=== PATIENT | male | born 1975 | race African-American/Black ===

== ENCOUNTER 2020-11-15 17:24 | Emergency (ER) | payer OTHER ==
[2020-11-15 17:32] VITALS: BP 136/67
--- NOTE | 2020-11-15 17:44 | ED Physician Documentation ---
PD HPI HEENT - Stated complaint Stated Complaint: ITCHY SMELLY EARS W/ PX - Chief complaint Chief Complaint: Heent - History obtained from History obtained from: Patient - Additional information Additional information: Because of PTSD he does not like loud noises. He wears earphones often, earplugs to. He changed his earplugs about a month ago and there was a lot of moisture in his ear. Since then both of his ears have been itchy and smelling foul. No change in hearing. Review of Systems Constitutional: reports: Reviewed and negative Ears: reports: Reviewed and negative Nose: reports: Reviewed and negative Throat: reports: Reviewed and negative PD PAST MEDICAL HISTORY - Past Medical History Past Medical History: Yes Cardiovascular: None Respiratory: None Neuro: Motion sickness Endocrine/Autoimmune: None GI: GERD : None HEENT: None Psych: None Musculoskeletal: None Derm: None - Past Surgical History Past Surgical History: No - Present Medications Home Medications: Ambulatory Orders Medication Instructions Recorded Confirmed Escitalopram Oxalate [Lexapro] 7.5 mg PO DAILY 11/15/20 11/15/20 Famciclovir 125 mg PO DAILY 11/15/20 11/15/20 Neomycin/Polymyx/Hc Otic Drops 4 drops OT TID #1 bottle 11/15/20 [Cortisporin Ear Susp] - Allergies Allergies/Adverse Reactions: Allergies Allergy/AdvReac Type Severity Reaction Status Date / Time metoclopramide [From Reglan] AdvReac Anxiety Verified 11/15/20 17:28 - Social History Does the pt smoke?: No Smoking Status: Never smoker Does the pt drink ETOH?: No Does the pt have substance abuse?: No - Immunizations Immunizations are current?: Yes - POLST Patient has POLST: No PD ED PE NORMAL - Vitals Vital signs reviewed: Yes - General General: Alert and oriented X 3, No acute distress - HEENT HEENT: Other (He has bilateral mild external otitis. The TMs are normal. No mastoid tenderness.) - Neuro Neuro: Alert and oriented X 3, Normal speech Results - Vitals Vitals: Vital Signs - 24 hr 11/15/20 17:29 Temperature 37.5 C Heart Rate 90 Respiratory 18 Rate Blood Pressure 136/67 H O2 Saturation 99 Oxygen O2 Source Room air Departure - Departure Disposition: Home, Self Care Clinical Impression: External otitis Qualifiers: Otitis externa type: unspecified type Chronicity: acute Laterality: bilateral Qualified Code(s): H60.503 - Unspecified acute noninfective otitis externa, bilateral Condition: Good Record reviewed to determine appropriate education?: Yes Instructions: ED Otitis Externa Prescriptions: Neomycin/Polymyx/Hc Otic Drops [Cortisporin Ear Susp] 4 drops OT TID #1 bottle Comments: Follow-up with your doctor if not better in a week. Return for new or worsening symptoms.
== END 2020-11-15 18:07 | disposition home or self-care (01) ==
LOC: ED 17:24
DX: H60.503 Unspecified acute noninfective otitis externa, bilateral (principal)
CPT/HCPCS: 99282; 99283